=== PATIENT | male | born 1970 | race Caucasian/White ===

== ENCOUNTER 2017-09-23 10:31 | Observation (INO) | payer OTHER ==
[~2017-09-23] VITALS: Ht 182.9 cm; Wt 90.7 kg
[2017-09-23 10:41] VITALS: BP 134/88
[2017-09-23] MEDS ORDERED: WATER PILL (10:46)
[2017-09-23] MEDS ORDERED: LISINOPRIL10 MG PO (10:46)
[2017-09-23] MEDS ORDERED: LIORESAL 10 MG10 MG PO (10:46)
[2017-09-23] MEDS ORDERED: WELLBUTRIN PO (10:47)
[2017-09-23 11:16] LABS: HEMATOCRIT 45.6 % (42.0-52.0); HEMOGLOBIN 15.2 gm/dL (14.0-18.0); MCH 30.2 pg (26.0-34.0); MCHC 33.4 g/dL (28.0-37.0); MCV 90.4 fL (80.0-100.0); MPV 8.6 fl. (7.2-11.1); NUCLEATED RBCS 0 /100WBC; PLATELET COUNT* 233 thou/uL (150-400); RBC 5.04 mil/uL (4.50-6.00); RDW-CV 12.9 % (10.5-14.5)
[2017-09-23 11:21] LABS: CALCIUM 8.5 mg/dL (8.5-10.1); CREATININE 1.2 mg/dL (0.6-1.3); POTASSIUM 3.7 mmol/L (3.5-5.1)
[2017-09-23 11:26] LABS: ALBUMIN 3.7 g/dL (3.4-5.0); TOTAL BILIRUBIN 0.5 mg/dL (<0.1-1.0); TOTAL PROTEIN 7.6 g/dL (6.4-8.2)
[2017-09-23 11:34] LABS: APTT 26.7 Seconds (25.0-31.3); PROTIME 10.1 Seconds (9.20-11.50)
[2017-09-23 11:40] LABS: ABSOLUTE EOSINOPHILS 0.1 thou/uL (0.0-0.7); ABSOLUTE LYMPHOCYTES 0.5 thou/uL (0.8-5.3); ABSOLUTE MONOCYTES 0.1 thou/uL (0.0-1.2); ABSOLUTE NEUTROPHILS 11.3 thou/uL (1.6-8.1); PLATELET ESTIMATE ADEQUATE
[2017-09-23 12:56] LABS: URINE BILIRUBIN NEGATIVE (Negative); URINE BLOOD NEGATIVE (Negative); URINE CLARITY CLEAR; URINE COLOR YELLOW; URINE GLUCOSE-RANDOM NEGATIVE (Negative); URINE KETONES 1+ (Negative); URINE LEUKOCYTES-REFLEX NEGATIVE (Negative); URINE NITRITE-REFLEX NEGATIVE (Negative); URINE PROTEIN NEGATIVE (Negative); URINE SPECIFIC GRAVITY <= 1.005 (1.005-1.030); URINE UROBILINOGEN 0.2 E.U./dl (0.2-1.0)
[2017-09-23 13:12] VITALS: BP 136/83
[2017-09-23 13:13] VITALS: BP 136/83
[2017-09-23 13:31] VITALS: BP 150/78
[2017-09-23 15:02] VITALS: BP 150/78
--- NOTE | 2017-09-23 16:59 | EKG ---
[place] [address] ELECTROCARDIOGRAM REPORT Name: ANNA LÓPEZ Room: [address] ADM IN M.R.#: [id number] Admission: 09/23/17 Attend Phys: Melisa Ritter DO Discharge: Date of : 66 Report #: [id number] THIS REPORT FOR: //name// [facility] ED Test Date: 2017-09-23 Test Time: 11:12:47 Pat Name: ANNA LÓPEZ Department: Room: [facility] Gender: M Jet Inspector: : 1970 Requested By: Cruz Robbins Order Number: [id number] MD: Darci Omalley Measurements Intervals [place] Rate: 66 P: -35 MA: 176 QRS: 18 QRSD: 87 T: 31 QT: 387 QTc: 412 Interpretive Statements Sinus rhythm ST elev, probable normal early repol pattern Baseline wander in lead(s) I,III,aVL Compared to ECG 04/15/2012 09:52:49 ST (T wave) deviation now present Inferior Q waves no longer present Q waves no longer present Electronically Signed On 09-23-2017 16:59:10 CDT by Darci Omalley [email or web address] <ELECTRONICALLY SIGNED> By: Darci Omalley MD, FACC 09/23/17 1659 1112 1112 Darci Omalley MD, FACC /EPI
[2017-09-23 21:00] VITALS: BP 110/71
[2017-09-24 00:24] VITALS: BP 111/72
[2017-09-24 04:12] VITALS: BP 118/74
[2017-09-24 04:53] LABS: HEMOGLOBIN 13.4 gm/dL (14.0-18.0); MCH 30.4 pg (26.0-34.0); MCHC 33.6 g/dL (28.0-37.0); MCV 90.6 fL (80.0-100.0); MPV 8.8 fl. (7.2-11.1); RBC 4.42 mil/uL (4.50-6.00); RDW-CV 12.9 % (10.5-14.5); WBC 8.8 thou/uL (4.0-11.0)
[2017-09-24 05:36] LABS: CALCIUM 7.7 mg/dL (8.5-10.1); CREATININE 0.9 mg/dL (0.6-1.3); TOTAL BILIRUBIN 0.6 mg/dL (<0.1-1.0); TOTAL PROTEIN 6.1 g/dL (6.4-8.2)
[2017-09-24 08:00] VITALS: BP 120/78
[2017-09-24 11:54] VITALS: BP 120/78
[2017-09-24] MEDS ORDERED: NORCO 7.5-3251 EACH PO (11:58)
--- NOTE | 2017-09-28 14:30 | OP ---
[address] [address] OPERATIVE REPORT Name: RENEANNA Room: [address] Vanna Titus#: [id number] Admission: 09/23/17 Attend Phys: Melisa Ritter DO Discharge: 09/24/17 Date of : 66 Report #: [id number] THIS REPORT FOR: //name// CC: Melisa Marques DO DICTATED BY: Larry Farah DO DATE OF SERVICE: 09/23/2017 This is Larry Farah, PGY II, dictating operative report on behalf of Dr. Abhi Shaikh. PREOPERATIVE DIAGNOSIS: Acute appendicitis. POSTOPERATIVE DIAGNOSIS: Acute appendicitis. SURGEON: Abhi Shaikh DO ASSISTANTS: Larry Farah and Corrine Talbot. OPERATION PERFORMED: Laparoscopic appendectomy. ANESTHESIA: General. ESTIMATED BLOOD LOSS: 20 mL. SPECIMEN REMOVED: Appendix. COMPLICATIONS: None. DISPOSITION: PACU to floor. HISTORY OF PRESENT ILLNESS: The patient is a pleasant 47-year-old male who was having some abdominal pain earlier this morning associated with an episode of vomiting. He has been complaining of lower abdominal pain, worse in the right lower quadrant. CT scan did show acute appendicitis without any perforation. It was discussed with him that laparoscopic appendectomy may be recommended. Risks and complications were discussed include bleeding, infection, injury to surrounding structures, possible drain placement, possible open surgery and risk of anesthesia. He acknowledged understanding and agreed to proceed with surgery. DESCRIPTION OF PROCEDURE: After consent was obtained, the patient was taken to the operating room and placed in the supine position, 2 grams of Ancef were [facility] [address] [place] [address] OPERATIVE REPORT Name: ANNA LÓPEZ Dedrick Room: [address] Vanna Titus#: [id number] Admission: 09/23/17 Attend Phys: Melisa Ritter DO Discharge: 09/24/17 Date of : 66 Report #: [id number] given for surgical prophylaxis. Sequential compression devices were placed on bilateral lower extremities. Safety belt was placed over the patient's waist. General anesthesia was administered without any complications. The patient was then prepped and draped in the standard sterile fashion. Timeout was performed to confirm the patient and procedure. A supraumbilical incision was made in a vertical fashion using 11 blade scalpel. Electrocautery was used for hemostasis and to dissect down to the level of the fascia. The fascia was scored with electrocautery, grasped between 2 Kochers. Hemostat was then used to bluntly enter the peritoneum. Two stitches of 0 Vicryl were placed on either side of the fascia in a jdiida-lr-fcgvo fashion. A 10 mm Nicky trocar was placed supraumbilical. Insufflation was initiated without any complication. Camera was inserted into the abdomen and intra-abdominal contents were inspected. A second 5 mm trocar was placed suprapubic under direct visualization. Laparoscopic [place] was used to move the small bowel and omentum lateral. The cecum could be seen more towards the right upper quadrant and the surrounding fat was moved and the appendix could be seen. It was very evident that this was indeed acute appendicitis. A second trocar was placed in the left lower quadrant, this was a 12 mm trocar, was placed under direct visualization. The appendix was then grasped at the base and the surrounding fat adhesions were dissected off bluntly. Harmonic scalpel was then used to cut along the mesoappendix and also to ensure hemostasis. Once the base of the appendix was reached, a [employer] stapler with purple load was used to fire across the base of the appendix. There was a little bit of bleeding noted on the staple line, so a hook cautery was used to cauterize this and hemostasis was ensured, stable and once again inspected, and there was no evidence of bleeding. The abdomen was then irrigated copiously and all fluid was suctioned. There was no more evidence of bleeding. All trocars were removed under direct visualization. Before this, the appendix was placed in laparoscopic EndoCatch bag. The left lower quadrant 12 mm incision was closed with a Johan-Kameron using a 0 Vicryl stitch. All subcutaneous and then the supraumbilical incision fascia was closed with one stitch of 0 Vicryl in [id number]-[id number]-lqbfk fashion. All skin incisions were closed with 4-0 Monocryl. Sterile dressings were placed over top. All counts were correct x 2 at the end of the case. The patient tolerated the procedure well and was awakened from anesthesia without any complication, transferred to PACU in stable condition. <ELECTRONICALLY SIGNED> By: Abhi Shaikh DO 09/28/17 1430 1756 1825Abeata Shaikh DO /nt
--- NOTE | 2017-09-30 07:51 | PATH ---
[address] [address] PATHOLOGY RPT PROCEDURE Name: ANNA COX Room: [address] Vanna Titus#: [id number] Admission: 09/23/17 Date of : 66 Discharge: 09/24/17 Report #: [id number] Path Case #: [id number] [facility] Accession Number: [id number] . 01 Material submitted: . APPENDIX . 01 Clinical history: . Acute appendix, abdominal pain . 02 Diagnosis: Appendix: - Acute appendicitis, periappendicitis, and serositis. (FLO:tamara; 09/28/2017) QMS/09/28/2017 . 02 Electronically signed: . Nigel Aldana MD, Pathologist NPI- [id number] . 01 Gross description: . Received in formalin labeled "Anna Cox, appendix," is an appendix measuring 6.2 cm in length by up to 1.1 cm in diameter with a moderate amount of attached mesoappendix measuring up to 2.7 cm in thickness. The serosal surface is smooth to shaggy and pale crum to crum-brown in appearance, and is partially encased in adhesions. The proximal margin is closed with a linear staple line; this area is inked black. Serial sectioning reveals a pinpoint to dilated lumen partially filled with light crum, friable material. The proximal margin and bisected distal tip are submitted in cassette A1, and additional patient service representative sections are submitted in cassette A2. ([facility]; 09/27/2017) XDC/XDC . 02 Pathologist provided ICD-10: K35.80 . 02 CPT . 571636 Performed at: [address], [place] [id number] MD Eloy Amaya MD Phone: [phone] Performed at: 02 [facility] [address], [place], [place] [id number] MD Nigel Aldana MD Phone: [phone]
== END 2017-09-24 12:45 | disposition home or self-care (01) ==
LOC: M.ERS 10:31 → M.ORTHSURG 12:45 → M.TBA-ER 12:45 → M.ORTHSURG 12:45
PROVIDERS: Family Medicine; Surgery; ADMIT Surgery
DX: K35.80 Unspecified acute appendicitis (principal); I10 Essential (primary) hypertension; D72.829 Elevated white blood cell count, unspecified; F32.9 Major depressive disorder, single episode, unspecified; Z86.73 Personal history of transient ischemic attack (TIA), and cerebral infarction without residual deficits